=== PATIENT | male | born 1950 | race Caucasian/White ===

== ENCOUNTER 2019-12-08 09:04 | Inpatient (IN) | payer MEDICARE, OTHER ==
[~2019-12-08] VITALS: Ht 175.3 cm; Wt 102.0 kg
[2019-12-08 09:44] VITALS: BP 119/75; PULSE 66; TEMP 98.6
[2019-12-08 09:58] LABS: BASO # 0.1 (0.0-0.2); BASO % 0.7 % (0.0-2.0); EOS # 0.4 (0.0-0.7); EOS % 4.8 % (0-4.0); GRAN # 5.7 (1.4-6.5); GRAN % 68.2 % (42.2-75.2); HEMATOCRIT 44.3 % (42.0-52.0); HEMOGLOBIN 14.6 g/dl (13.5-18.0); LYMPH # 1.7 (1.2-3.4); LYMPH % 20.6 % (20.0-51.0); MEAN CELL VOLUME 86 fl (80.0-100.0); MEAN CORPUSCULAR HEMOGLOBIN 29 pg (27.0-31.0); MEAN CORPUSCULAR HGB CONC 33 g/dl (33.0-37.0); MEAN PLATELET VOLUME 9.2 fl (7.4-10.4); MONO # 0.4 (0.1-0.6); MONO % 5.1 % (1.7-9.3); PLATELET COUNT 238 K/mm3 (130-400); RED BLOOD COUNT 5.13 M/mm3 (4.20-5.60); REDCELL DISTRIBUTION WIDTH-CV 13.6 % (11.5-14.5)
[2019-12-08 10:06] LABS: INR 1.1 (0.8-3.0); PROTHROMBIN TIME 12.9 SECONDS (9.7-12.8)
[2019-12-08] MEDS ORDERED: HYZAAR 25 MG-101 TAB PO (10:21)
[2019-12-08] MEDS ORDERED: PRILOSEC 20MG20 MG PO (10:22)
[2019-12-08] MEDS ORDERED: CARDURA 8MG TAB8 MG PO (10:23)
[2019-12-08] MEDS ORDERED: ZOCOR 20MG20 MG PO (10:23)
[2019-12-08] MEDS ORDERED: PROSCAR 5MG5 MG PO (10:24)
[2019-12-08] MEDS ORDERED: MULTI VITAMINS1 TAB PO (10:24)
[2019-12-08] MEDS ORDERED: THE MEDICINE S200 M2 PO (10:25)
[2019-12-08] MEDS ORDERED: ELIQUIS 5MG PO (10:27)
[2019-12-08] MEDS ORDERED: LOPRESSOR 225 MG/TAB PO (10:28)
[2019-12-08 10:32] LABS: ALBUMIN 4.4 gm/dL (3.5-5.0); BILIRUBIN,TOTAL 0.9 mg/dL (0.0-1.0); CALCIUM 9.3 mg/dL (8.4-10.2); CREATININE, serum 0.87 (0.66-1.25); MAGNESIUM 1.9 mg/dL (1.6-2.3); POTASSIUM 3.9 mmol/L (3.4-5.0); TOTAL PROTEIN 7.4 gm/dL (6.4-8.2)
[2019-12-08 11:37] VITALS: BP 125/73; PULSE 65; TEMP 98.5
--- NOTE | 2019-12-08 12:15 | NUR ---
Pt up to room 306, med rec, admission, pharmacy and allergies completed. Pt is A&O, independent in room. Pt is on room air, tele. Denies chest pain, dizziness, SOB, N/V/D, numbness or tingling at this time. Pulses strong bilaterally. Breathing is even and unlabored. HR irregular, normal sound. 20g LAC INT IV started w/o complications, flushes well. Pt denies needs at this time. POC discussed w/ pt who verbalized understanding.
[2019-12-08 16:46] VITALS: BP 139/76; PULSE 68; TEMP 98.4
--- NOTE | 2019-12-08 17:41 | NUR ---
Pt has had uneventful day. Pt ambulating halls, denies pain, dizziness, sob, chest pain, palpitations. no concerns noted.
[2019-12-08 19:07] VITALS: BP 125/61; PULSE 64; TEMP 98.4
--- NOTE | 2019-12-08 20:00 | NUR ---
Shift assessment complete. Pt resting in bed, awake, a&o, cooperative c cares. Pt denies pain or any other c/o. INT patent. Tele in place. Pt denies needs. Call light in reach, will monitor.
[2019-12-09 03:18] VITALS: BP 105/58; PULSE 58; TEMP 98.2
[2019-12-09 07:20] LABS: BASO # 0.1 (0.0-0.2); BASO % 0.8 % (0.0-2.0); EOS # 0.4 (0.0-0.7); GRAN # 5.1 (1.4-6.5); GRAN % 61.2 % (42.2-75.2); HEMATOCRIT 42.8 % (42.0-52.0); HEMOGLOBIN 14.4 g/dl (13.5-18.0); LYMPH # 2.2 (1.2-3.4); LYMPH % 26.4 % (20.0-51.0); MEAN CELL VOLUME 85 fl (80.0-100.0); MEAN CORPUSCULAR HEMOGLOBIN 29 pg (27.0-31.0); MEAN CORPUSCULAR HGB CONC 34 g/dl (33.0-37.0); MEAN PLATELET VOLUME 9.7 fl (7.4-10.4); MONO # 0.5 (0.1-0.6); MONO % 6.2 % (1.7-9.3); PLATELET COUNT 240 K/mm3 (130-400); RED BLOOD COUNT 5.05 M/mm3 (4.20-5.60); REDCELL DISTRIBUTION WIDTH-CV 13.3 % (11.5-14.5)
[2019-12-09 07:33] VITALS: BP 121/71; PULSE 50; TEMP 98
[2019-12-09 07:36] LABS: CALCIUM 9.5 mg/dL (8.4-10.2); CREATININE, serum 0.97 (0.66-1.25)
--- NOTE | 2019-12-09 08:29 | NUR ---
Pt assessment completed and charted. Morning medications administered per JAN. Pt is A&O, independent in room, on room air, tele in place. LAC INT IV flushes w/o complications. Radial pulses strong bilaterally. LS cta. HR irregular rhythm. Pt denies chest pain, palpitations, dizziness, SOB, abdominal pain. Pt ambulates in halls. No concerns expressed by patient at this time.
--- NOTE | 2019-12-09 09:34 | NUR ---
SW met with the patient to discuss discharge plan. The patient lives in [place] with his , Haylie (ph#[phone]). He reports independence with ADLs and has a cane available, if needed. The patient's PCP is Dr. Daniel Carney and he receives his medications on [address]. He reports no difficulties obtaining his meds. The patient does not have advanced directives and he was not interested in completing them at this time. The patient plans to return home with his upon discharge. No additional needs at this time.
[2019-12-09 12:00] VITALS: BP 123/63; PULSE 60; TEMP 97.8
--- NOTE | 2019-12-09 12:03 | NUR ---
First visit from the faculty i on call medical assistant. No needs right now.
[2019-12-09 16:36] VITALS: BP 122/73; PULSE 50; TEMP 98
--- NOTE | 2019-12-09 18:34 | NUR ---
Pt has had uneventful day, ambulating halls independently, on room air and tele. No complaints throughout the day. Tele did call this nurse about 1830 to inform me that pt had HR jump to 140. This nurse checked on pt, pt up ambulating in room, just removed dinner tray to outside of room, was putting up bag in cabinet. Pt asymptomatic, states he felt his HR jump up but it "didn't bother him". Denies dizziness, vision changes, lightheadedness, nausea, diaphoresis. No other concerns expressed. HR back down to mid 60s.
--- NOTE | 2019-12-09 20:40 | NUR ---
Shift assessment complete. Pt resting in bed, awake, a&o, cooperative c cares. Pt denies pain or any other c/o. INT patent. Tele in place. Pt denies needs. Call light in reach, will continue to monitor.
[2019-12-09 22:06] VITALS: BP 121/66; PULSE 55; TEMP 98.8
[2019-12-10] VITALS (7 sets, daily range): BP systolic 101–127; BP diastolic 60–69; PULSE 57–73; TEMP 97.4–98
[2019-12-10 06:16] LABS: BASO # 0.1 (0.0-0.2); BASO % 0.6 % (0.0-2.0); EOS # 0.5 (0.0-0.7); EOS % 5.6 % (0-4.0); GRAN # 5.7 (1.4-6.5); GRAN % 61.6 % (42.2-75.2); HEMATOCRIT 41.7 % (42.0-52.0); LYMPH # 2.4 (1.2-3.4); LYMPH % 25.8 % (20.0-51.0); MEAN CELL VOLUME 85 fl (80.0-100.0); MEAN CORPUSCULAR HEMOGLOBIN 28 pg (27.0-31.0); MEAN CORPUSCULAR HGB CONC 34 g/dl (33.0-37.0); MEAN PLATELET VOLUME 9.8 fl (7.4-10.4); MONO # 0.6 (0.1-0.6); MONO % 6.1 % (1.7-9.3); PLATELET COUNT 224 K/mm3 (130-400); RED BLOOD COUNT 4.93 M/mm3 (4.20-5.60); REDCELL DISTRIBUTION WIDTH-CV 13.2 % (11.5-14.5)
[2019-12-10 06:33] LABS: CALCIUM 9.2 mg/dL (8.4-10.2); CREATININE, serum 0.95 (0.66-1.25); MAGNESIUM 1.8 mg/dL (1.6-2.3); POTASSIUM 3.9 mmol/L (3.4-5.0)
--- NOTE | 2019-12-10 08:48 | NUR ---
Pt down for cardioversion procedure at this time. LR at 150 to LAC running. JIM Bernabe from OR up to get pt, all questions answered. Assessment also completed and charted. Pt is A&O, independent in room. Pt on room air. Pt denies dizziness, SOB, chest pain, palpitations. No further needs at this time.
--- NOTE | 2019-12-10 09:30 | NUR ---
Pt back from procedure, converted back to NS. Pt is A&O, denies pain. at bedside.
--- NOTE | 2019-12-10 10:04 | NUR ---
Pt back from procedure, VS monitoring in progress. VSS. Morning medications administered. NO other concerns noted.
[2019-12-10] MEDS ORDERED: BETAPACE 80MG80 MG PO (10:29)
--- NOTE | 2019-12-10 11:20 | NUR ---
Pt doing well since cardioversion. Denies pain, chest pain. Sitting up in bed with at bedside. VSS. Awaiting discharge.
--- NOTE | 2019-12-10 12:08 | NUR ---
Pt to discharge, discharge instructions discussed and reviewed with patient and who verbalize understanding. All questions answered. No further needs at this time. LAC INT IV dc'd w/o complications, catheter tip intact. Pt escorted out ambulatory.
== END 2019-12-10 12:53 | disposition home or self-care (01) | DRG 310 ==
LOC: MEDICAL 09:04
PROVIDERS: Nurse Practitioner; ADMIT Internal Medicine Adult Congenital Heart Disease
PROC: 5A2204Z Restoration of Cardiac Rhythm, Single (ICD-10-PCS; principal; 2019-12-10)
DX: I48.92 Unspecified atrial flutter (principal); I48.0 Paroxysmal atrial fibrillation; I10 Essential (primary) hypertension; E78.5 Hyperlipidemia, unspecified; Z85.820 Personal history of malignant melanoma of skin
CPT/HCPCS: J2704; J7120